=== PATIENT | male | born 1990 | race Caucasian/White ===

== ENCOUNTER 2024-06-13 08:09 | Emergency (ER) | payer OTHER, SELFPAY ==
[2024-06-13 08:20] VITALS: BP 147/78; PULSE 82; RESP 20; TEMP 37.2; O2SAT 100
--- NOTE | 2024-06-13 08:24 | ED.MALEGU ---
HPI - Male Genitourinary General Chief complaint: Urogenital-Male Stated complaint: std test Time Seen by Provider: 06/13/24 08:26 Source: patient, RN notes reviewed and old records reviewed Mode of arrival: ambulatory Limitations: no limitations History of Present Illness HPI Narrative: 33 year old male [facility] with complaints of exposure to trichomonas from significant other who was tested at out facility earlier in the week. Patient reports that he would like to have testing for STD completed. Patient reports no penis drainage, irritation or any discomfort with voiding. Patient reports no known fevers, chills or any ill symptoms. MD Complaint: possible STD exposure Onset (ago): week(s) (2) Associated symptoms: Reports denies other symptoms Related Data Allergies Allergy/AdvReac Type Severity Reaction Status Date / Time No Known Allergies Allergy Verified 06/13/24 08:24 Review of Systems Review of Systems: CONSTITUTIONAL: Denies fever, chills, or sweats. CARDIOVASCULAR: Denies chest pain, palpitations, or edema. RESPIRATORY: Denies cough or dyspnea. GASTROINTESTINAL: Denies abdominal pain, nausea, vomiting, or diarrhea. GENITOURINARY: Reports no dysuria, frequency, urgency. Denies flank pain or hematuria, denies any penis discharge. SKIN: Denies rash or itching. MUSCULOSKELETAL: Denies back pain or myalgia. Denies CVA tenderness NEUROLOGIC: Denies headache All systems reviewed & are unremarkable except as noted in HPI and below PMFSH Social History Social History (Updated 06/14/24 @ 07:45 by Aleida Rizvi NP) Smoking status: Never smoker Alcohol use details: no alcohol use Substance use: current Substance use type: marijuana Gender identity (if verbalized by the patient): Male Comments At time of signature, agree with nursing past medical, surgical, social and family history. There is no relevant family history pertinent to the presenting complaint Exam Narrative: GENERAL: Well-appearing, well-nourished, and in no acute distress. HEAD: Normocephalic, atraumatic. NECK: Supple.no lymphadenopathy CHEST: Clear to auscultation. No respiratory distress.SAO2 100% on room air HEART: Regular rate and rhythm. No murmur heard. Normal peripheral pulses. ABDOMEN: Soft, nontender, nondistended, normal active bowel sounds. No CVA tenderness denies any penis discharge or irritation EXTREMITIES: Normal range of motion. No edema. SKIN: Warm, dry, no rash. NEURO: No focal deficits. Alert and oriented x3. Course Course Emergency Course: Patient is aware of diagnosis, understands and agrees to treatment plan.? Anticipatory guidance given.? Patient agrees to follow-up as directed and is aware of reasons to seek care at the emergency department. Portions of this record may have been created with voice recognition software Level of Care: Express Care Visit Vital Signs Vital signs: Vital Signs Temperature 37.2 C 06/13/24 08:20 Pulse Rate 82 06/13/24 08:20 Respiratory Rate 20 06/13/24 08:20 Blood Pressure 147/78 H 06/13/24 08:20 Pulse Oximetry 100 06/13/24 08:20 Oxygen Delivery Room Air 06/13/24 08:20 Temperature 37.2 C 06/13/24 08:32 Pulse Rate 82 06/13/24 08:32 Respiratory Rate 20 06/13/24 08:32 Blood Pressure 147/78 H 06/13/24 08:32 Pulse Oximetry 100 06/13/24 08:32 Oxygen Delivery Room Air 06/13/24 08:32 reviewed MDM - Male Genitourinary Differential Diagnosis Differential diagnosis: Likely urinary tract infection, urethritis and other (exposure to STD, STD testing) Medical Records Attestation: I reviewed the patient's medical records. Lab Data Attestation: I reviewed the patient's lab results. Lab results narrative: urine for STD's sent Labs: Lab Results 06/13/24 Range/Units 08:25 C. trachomatis (PCR) Not detected (NOT DETECTE) N. gonorrhoeae (PCR) Not detected (NOT DETECTE) T. vaginalis (PCR) Detected A (NOT D
[2024-06-13 08:32] VITALS: BP 147/78; PULSE 82; RESP 20; TEMP 37.2; O2SAT 100
[2024-06-13 17:56] LABS: Trichomonas Vag PCR DETECTED (NOT DETECTE)
[2024-06-13 18:24] LABS: Chlamydia trachomatis NOT DETECTED (NOT DETECTE); Neisseria gonorrhoeae PCR NOT DETECTED (NOT DETECTE)
== END 2024-06-13 08:40 | disposition home or self-care (01) ==
PROVIDERS: Emergency Provider Registered Nurse
DX: A59.9 Trichomoniasis, unspecified (principal); F12.90 Cannabis use, unspecified, uncomplicated
CPT/HCPCS: 87491; 87591; 87661; 99203; G0463

== ENCOUNTER 2024-07-03 08:50 | Emergency (ER) | payer OTHER, SELFPAY ==
[2024-07-03 09:00] VITALS: BP 142/86; PULSE 92; RESP 16; TEMP 36.8; O2SAT 100
--- NOTE | 2024-07-03 09:32 | ED.GENADULT ---
HPI - General Adult General Chief complaint: Urogenital-Male Stated complaint: Painful Urination Time Seen by Provider: 07/03/24 09:28 Source: patient, RN notes reviewed and old records reviewed Mode of arrival: ambulatory Limitations: no limitations History of Present Illness HPI narrative: 33-year-old male to [facility] for complaint urethral irritation, worse during urination for 4 days. Patient reports being seen at [facility] proximally 3 weeks ago and being treated for Trichomonas. Patient states that he followed all directions is completed treatment. Patient states that 4 days ago he masturbated then noticed almost immediately urethral redness and pain. Patient denies sexual intercourse, use of new products, urinary changes, testicular pain, penile discharge, fever, abdominal pain, allergies. Patient reports that he went to health department 4 days ago when symptoms 1st began and tested negative all STIs. Patient states he was advised to be seen in [place] to rule out UTI and urethritis. Patient resting comfortably in exam room in no acute distress. Related Data Allergies Allergy/AdvReac Type Severity Reaction Status Date / Time No Known Allergies Allergy Verified 07/03/24 09:16 Review of Systems Review of Systems: All systems reviewed & are unremarkable except as noted in HPI and below Constitutional: Constitutional: Reports no additional constitutional complaints Eyes: Eyes: Reports no additional eye complaints ENT: Reports system reviewed and no additional complaints, except as documented Cardiovascular: Cardiovascular: Reports no additional cardiovascular complaints, Denies chest pain and Denies dyspnea Respiratory: Respiratory: Reports no additional respiratory complaints, Denies cough and Denies dyspnea Musculoskeletal: Musculoskeletal: Reports no additional musculoskeletal complaints Neurologic: Reports system reviewed and no additional complaints, except as documented Psychiatric: Psychiatric: Reports no additional psychiatric complaints PMFSH Social History Social History (Updated 06/14/24 @ 07:45 by Aleida Rizvi NP) Smoking status: Never smoker Alcohol use details: no alcohol use Substance use: current Substance use type: marijuana Gender identity (if verbalized by the patient): Male Comments At the time of my signature, I reviewed and agree with the nursing past medical, surgical, social, and family history. There is no relevant family history pertinent to the patient complaint. Exam Const: General: cooperative, healthy appearing, comfortable, no acute distress, alert and well nourished Nutritional Appearance: well nourished Orientation/consciousness: patient oriented x3 Limitations: no limitations HENMT: Head: normal to inspection Ears: external ears normal Face/Nose/Sinus: Normal external nose present, Normal nares present, normal facial exam, No erythema and No edema Face and sinus: normal facial exam, no erythema and no edema Mouth: Yes Normal oral and palatal mucosa present Eyes: General: appearance normal, both eyes and all related structures Neck: Neck: normal visual inspection, full ROM and no meningeal signs Lymphatic: no lymphadenopathy noted and no lymphedema noted Chest: Chest palpation & inspection: normal inspection of the chest Resp: Effort & Inspection: normal respiratory effort and able to speak in complete sentences Auscultation: clear to auscultation bilaterally Cardio: Jugular venous distension: no JVD Rate: regular rate Rhythm: regular rhythm Back/Spine/Pelvis: Cervical Spine: cervical ROM normal Skin: General skin exam: normal color, no rashes or lesions noted and turgor normal Neuro: General: patient oriented x3, gait normal, moves all extremities and no meningeal signs Speech: normal speech Gait exam (Neuro): Normal gait present Extrem: General: normal to inspection, full ROM and capillary refill normal Psych: Appearance: grossly
[2024-07-03 09:36] LABS: EDUAAPPEAR Clear; EDUABILI Negative (Negative); EDUABLOOD Negative (Negative); EDUACOLOR1 Light/Pale; EDUAGLUCOSE Negative (Negative); EDUAKETONE Negative (Negative); EDUALEUKO Negative (Negative); EDUANITRATE Negative (Negative); EDUAPROTEIN Negative (Negative); EDUAUROBILI 0.2
[2024-07-03] MEDS: LIDOCAINE HCL 1% LOCAL INJ 2 ML AMPUL INFILTRATE (09:50)
[2024-07-03] MEDS: cefTRIAXone 500 MG VIAL IM (09:50)
== END 2024-07-03 10:06 | disposition home or self-care (01) ==
PROVIDERS: Emergency Provider Nurse Practitioner Family; PCP Emergency Medicine
DX: N34.2 Other urethritis (principal)
CPT/HCPCS: 81003; 96372; 99213; G0463; J0696

== ENCOUNTER 2024-11-20 08:53 | Emergency (ER) | payer OTHER, SELFPAY ==
[2024-11-20 09:06] VITALS: BP 139/87; PULSE 105; RESP 16; TEMP 36.4; O2SAT 100
--- OUTSIDE RECORDS SUMMARY | 2024-11-20 09:08 | XMS_ITS | CONTINUITY OF CARE DOCUMENT ---
Author Name ari surjitlicha Address Unknown Organization [facility] Address [address] [place] [address] Phone [phone] Care Team Providers Care Ext Js Developer Name Role Phone Ace Staples MD Unavailable [phone] CAT VILLARREAL MD Unavailable [phone] CAT VILLARREAL MD Unavailable [phone] PROBLEMS Condition Status Date Provider Notes Chest pain-type to be determined active Tawny Mace Cardiology examination active Bernardo Storey ri Hx of tobacco use active Bernardo Mace ENCOUNTERS Date Type Provider Location Encounter Diag nosis - In-person encounter Office Visit Ace Staples MD [place] [facility] Chest pain-type to be determinedCardiology examinationHx of tobacco use VITAL SIGNS Date Observation Value Provider Body Mass Index (Ratio) 42.12 kg/m2 Destin Mace blood pressure, diastolic 98 mm[Hg] Mackenzie nkLogblanca blood pressure, systolic 159 mm[Hg] Arelis Moogblanca blood pressure, diastolic 99 mm[Hg] Sh errviviana Maria Isabel blood pressure, systolic 143 mm[Hg] She rrviviana Maria Isabel height E&M 75 [in_i] Kirstin Nicolas weight E&M 337 [lb_av] Ace Staples MD pulse rate 91 /min Kirstin Nicolas respiratory rate E&M 20 /min Kirstin Nicolas oxygen saturation, oximetry 98 % Kirstin Nicolas blood pressure, cuff size regular Sh rja Nicolas SOCIAL HISTORY Date Observation Value Provider social history reviewed E&M reviewed - no changes required Ace Staples MD cigarette use yes Kirstin Nicolas smoking status Former smoker Kirstin ortega INSURANCE PROVIDERS Payer name Policy type / Coverage type Ap red constitution party ID [facility] Medicaid [id number] ADVANCE DIRECTIVES Name Date DISCUSSED - NO DECISION MADE TREATMENT PLAN Date Name Performer [id number],C,T he patient complains of chest pain at rest, but denies chest pain with exercise. Location of pain is neck and left shoulder. Pain radiates to left arm. Pain feels like sharp. Pain is worse with no provocation. Pain is better with time. Symptoms associated with pain include none. The pain appeared after he worked cleaning up his garage. Denies any cardiac history. We will obtain echo and routine stress test Ace Staples MD Cardiology:The patie nt complains of chest pain at rest, but denies chest pain with exercise. Location of pain is neck and left shoulder. Pain radiates to left arm. Pain feels like sharp. Pain is worse with no provocation. Pain is better with time. Symptoms associated with pain include none. The pain appeared after he worked cleaning up his garage. Denies any cardiac history. We will obtain echo and routine stress test Ace Staples MD Date Name Stress Routine Complete Echo
--- OUTSIDE RECORDS SUMMARY | 2024-11-20 09:12 | XMS_ITS | CONTINUITY OF CARE DOCUMENT ---
Author Name ari surjitlicha Address Unknown Organization [facility] Address [address] [place] [address] Phone [phone] Care Team Providers Care Operating System Designer Name Role Phone Ace Staples MD Unavailable [phone] CAT VILLARREAL MD Unavailable [phone] CAT VILLARREAL MD Unavailable [phone] PROBLEMS Condition Status Date Provider Notes Chest pain-type to be determined active Tawny Mace Cardiology examination active Bernardo Storey ri Hx of tobacco use active Bernardo Mace ENCOUNTERS Date Type Provider Location Encounter Diag nosis - In-person encounter Office Visit Ace Staples MD [place] [facility] Chest pain-type to be determinedCardiology examinationHx [...] Nicolas blood pressure, cuff size regular Sh raj Nicolas SOCIAL HISTORY Date Observation Value Provider social history reviewed E&M reviewed - no changes required Ace Staples MD cigarette use yes Kirstin Nicolas smoking status Former smoker Kirstin ortega INSURANCE PROVIDERS Payer name Policy type / Coverage type Ap red democrat ID [facility] Medicaid [id number] ADVANCE DIRECTIVES Name Date DISCUSSED - NO DECISION MADE TREATMENT PLAN Date Name Performer [id number],C,T he patient complains of chest pain at [...]
[2024-11-20 10:26] LABS: EDSTREPNEGPOS1 Negative (Negative)
--- NOTE | 2024-11-20 10:30 | ED.URI ---
HPI - URI/Sore Throat General Chief Complaint: Upper Respiratory Infection Stated Complaint: throat History of Present Illness HPI Narrative: Patient is a 34-year-old male, without significant past medical history, presents to [facility] with 24 hour history of sore throat and low-grade fever this morning. His daughter was positive for strep 2 days ago. He denies associated cough but does have a slight runny nose. He has taken Tylenol for discomfort with adequate relief. He denies any additional associated symptoms modifying factors. He is vaccinated for influenza this season Related Data Allergies Allergy/AdvReac Type Severity Reaction Status Date / Time No Known Allergies Allergy Verified 11/20/24 10:00 Review of Systems Constitutional: Constitutional: Reports as per HPI ENT: Reports as per [facility] Social History Social History (Updated 06/14/24 @ 07:45 by Aleida Rizvi NP) Smoking status: Never smoker Alcohol use details: no alcohol use Substance use: current Substance use type: marijuana Gender identity (if verbalized by the patient): Male Exam Const: General: healthy appearing and no acute distress Nutritional Appearance: well nourished and obese Orientation/consciousness: patient oriented x3 Limitations: no limitations HENMT: Head: normal to inspection Ears: external ears normal Face/Nose/Sinus: Normal external nose present and Normal nares present Face and sinus: normal facial exam Mouth: Yes Normal oral and palatal mucosa present, Yes lip normal and Yes moist mucous membranes Teeth and gingiva: dentition normal Throat: uvula midline Other: patient has beefy erythema to the pharyngeal mucosa, tonsils are 2+ bilaterally without exudate, no trismus, no uvular deviation Neck: Neck: normal visual inspection, no meningeal signs and lymphadenopathy ( few palpable anterior cervical nodes are noted bilaterally, no posterior c) Resp: Effort & Inspection: normal respiratory effort Auscultation: clear to auscultation bilaterally Cardio: Rate: regular rate Rhythm: regular rhythm Other: patient's heart rate is 94 PMI Skin: General skin exam: normal color Rashes: no rashes Wounds: no wounds Neuro: General: patient oriented x3, moves all extremities, no meningeal signs, no focal motor deficits and CN's II-XI intact bilaterally Extrem: General: normal to inspection Course Course Emergency Course: strep is negative, will reflex for culture, however patient does have known sick contact with a beefy red throat, will treat with cephalexin, close PCP follow-up in 3 days if symptoms not resolving, supportive care otherwise. Patient is agreeable plan Level of Care: Express Care Visit ([id number]) Vital Signs Vital signs: Vital Signs Temperature 36.4 C 11/20/24 09:06 Pulse Rate 105 H 11/20/24 09:06 Respiratory Rate 16 11/20/24 09:06 Blood Pressure 139/87 11/20/24 09:06 Pulse Oximetry 100 11/20/24 09:06 Oxygen Delivery Room Air 11/20/24 09:06 Temperature 36.4 C 11/20/24 09:06 Pulse Rate 105 H 11/20/24 09:06 Respiratory Rate 16 11/20/24 09:06 Blood Pressure 139/87 11/20/24 09:06 Pulse Oximetry 100 11/20/24 09:06 Oxygen Delivery Room Air 11/20/24 09:06 MDM - URI/Sore Throat MDM Narrative Medical decision making narrative: cephalexin based on Centor score and known sick contact /strep exposure Differential Diagnosis Differential diagnosis: Likely upper respiratory infection, viral infection, influenza and pharyngitis Lab Data Labs: Lab Results 11/20/24 Range/Units 10:24 POC Grp A Strep Screen Negative (Negative) Discharge Plan Discharge Clinical Impression: Exposure to strep throat Pharyngitis Qualifiers: Pharyngitis/tonsillitis etiology: unspecified etiology Qualified Code(s): J02.9 - Acute pharyngitis, unspecified Patient Disposition: Home, Self-Care Condition: Stable Instructions: Antibiotic Form, Pharyngitis (ED) Additional Instructions: START AND COMPLETE ORAL ANTIBIOTICS PRESCRIBED, CONTINUE TO CONTROL YOUR FEVERS WITH TYLENOL AND OR IBUPROFEN DIRECTED [id number]. FOLLOW-UP CLOSELY WITH YOUR PRIMARY CARE PROVIDER IN 3-5 DAYS IF SYMPTOMS ARE NOT IMPROVING. REPLACE YOUR TOOTHBRUSH AFTER 24 HOURS OF ANTIBIOTICS ARE COMPLETE Patient Language: Kyrgyz Prescriptions: New cephalexin 500 mg capsule 500 mg PO Q12H Qty: 20 0RF Follow-up/Referrals: PHYSICIAN,TURNAROUND PLANNER [Primary Care Provider] - Stand Alone Forms: Work/School Release IP Time of Disposition: 10:37
== END 2024-11-20 10:52 | disposition home or self-care (01) ==
PROVIDERS: Emergency Provider Nurse Practitioner Family
DX: J02.9 Acute pharyngitis, unspecified (principal); Z20.818 Contact with and (suspected) exposure to other bacterial communicable diseases; F12.90 Cannabis use, unspecified, uncomplicated
CPT/HCPCS: 87081; 87880; 99213; G0463